=== PATIENT | female | born 1970 | race African-American/Black ===

== ENCOUNTER 2019-01-27 16:14 | Emergency (ER) | payer BC ==
[2019-01-27 17:46] LABS: ABSOLUTE BASOPHILS # (AUTO) 0.1 10^3/uL (0.0-0.2); ABSOLUTE NEUT (AUTO) 12.8 10^3/uL (1.7-8.2); BASOPHILS % (AUTO) 0.4 % (0-2); HEMATOCRIT 37.2 % (36.0-47.0); HEMOGLOBIN 12.5 g/dL (12.0-15.5); LYMPHOCYTES % (AUTO) 6.5 % (13-45); MEAN CORPUSCULAR HEMOGLOBIN 29.3 pg (27.0-33.4); MEAN CORPUSCULAR HGB CONC 33.7 g/dL (32.0-36.0); MEAN CORPUSCULAR VOLUME 87 fl (80-97); MONOCYTES % (AUTO) 6.8 % (3-13); PLATELET COUNT 297 10^3/uL (150-450); RED BLOOD COUNT 4.28 10^6/uL (3.72-5.28); RED CELL DISTRIBUTION WIDTH 13.5 % (11.5-14.0); SEGMENTED NEUTROPHILS % (AUTO) 86.3 % (42-78); TOTAL CELLS COUNTED % (AUTO) 100 %; WHITE BLOOD COUNT 14.8 10^3/uL (4.0-10.5)
[2019-01-27 18:08] LABS: ALBUMIN 4.1 g/dL (3.5-5.0); ALKALINE PHOSPHATASE 77 U/L (38-126); ANION GAP 12 (5-19); ASPARTATE AMINO TRANSFERASE 22 U/L (14-36); BILIRUBIN,DIRECT 0.2 mg/dL (0.0-0.4); BILIRUBIN,TOTAL 1.1 mg/dL (0.2-1.3); BLOOD UREA NITROGEN 9 mg/dL (7-20); CALCIUM 9.8 mg/dL (8.4-10.2); CARBON DIOXIDE 22 mmol/L (22-30); CHLORIDE 102 mmol/L (98-107); GLUCOSE 157 mg/dL (75-110); POTASSIUM 4.1 mmol/L (3.6-5.0); TOTAL PROTEIN 7.7 g/dL (6.3-8.2)
--- NOTE | 2019-01-27 18:09 | ER Document Report ---
ED Medical Screen (RME) - General Chief Complaint: Abdominal Pain Stated Complaint: ABDOMINAL PAIN/BACK PAIN Time Seen by Provider: 01/27/19 18:01 Primary Care Provider: TAPAN SMITH [Primary Care Provider] - Follow up as needed Notes: Patient is a 48-year-old female who presents the emergency department with chief complaint of abdominal pain. Patient reports she has had chills for 24 hours and a decreased appetite. Patient reports her last bowel movement was 1 week ago. Patient reports she feels full and has been burping. Patient reports she has been drinking and tolerating liquids without vomiting. Patient reports she is attempted to use Gas-X, Pepto-Bismol MiraLAX without much relief. Patient reports feeling a lower abdominal achiness. TRAVEL OUTSIDE OF THE [place] IN LAST 30 DAYS: No - Related Data Allergies/Adverse Reactions: No Known Allergies Allergy (Unverified 01/27/19 17:44) Past Medical History - Social History Frequency of alcohol use: Occasional Drug Abuse: None Physical Exam - Vital signs Vitals: Temp Pulse Resp BP Pulse Ox 98.2 F 116 H 16 114/69 100 01/27/19 16:17 01/27/19 16:17 01/27/19 16:17 01/27/19 16:17 01/27/19 16:17 - Abdominal Inspection: Normal Distension: No distension Bowel sounds: Normal Tenderness: Nontender Organomegaly: No organomegaly Course - Re-evaluation Re-evalutation: 01/27/19 18:09 I have greeted and performed a rapid initial assessment of this patient. A comprehensive ED assessment and evaluation of the patient, analysis of test results and completion of the medical decision making process will be conducted by additional ED providers. - Vital Signs Vital signs: Temp Pulse Resp BP Pulse Ox 98.2 F 116 H 16 114/69 100 01/27/19 16:17 01/27/19 16:17 01/27/19 16:17 01/27/19 16:17 01/27/19 16:17 - Laboratory Result Diagrams: 01/27/19 17:30 01/27/19 17:30 Doctor's Discharge - Discharge Referrals: TAPAN SMITH [Primary Care Provider] - Follow up as needed
[2019-01-27 18:12] LABS: APPEARANCE,URINE SLIGHTLY-CLOUDY; BILIRUBIN,URINE NEGATIVE (NEGATIVE); COLOR,URINE YELLOW; GLUCOSE, URINE NEGATIVE (NEGATIVE); KETONES,URINE 80 mg/dL (NEGATIVE); LEUKOCYTE ESTERASE,URINE MODERATE (NEGATIVE); NITRITE,URINE POSITIVE (NEGATIVE); PROTEIN,URINE 30 mg/dL (NEGATIVE); URINE SPECIFIC GRAVITY 1.013
--- NOTE | 2019-01-27 19:22 | RADIOLOGY REPORT (SQ) ---
EXAM DESCRIPTION: ACUTE ABDOMEN SERIES COMPLETED DATE/TIME: 01/27/2019 7:07 pm REASON FOR STUDY: lower abdominal pain, constipated COMPARISON: None. NUMBER OF VIEWS: Three views. TECHNIQUE: Frontal chest, supine abdomen and upright/decubitus abdomen radiographic images acquired. LIMITATIONS: None. FINDINGS: CHEST: Lungs clear of infiltrates. FREE AIR: None. No abnormal gas collections. BOWEL GAS PATTERN: Few air-fluid levels are seen within the right hemiabdomen. No evidence of obstru ction. CALCIFICATIONS: No suspicious calcifications. HARDWARE: None in the abdomen. SOFT TISSUES: No gross mass or suggestion of organomegaly. BONES: No acute fracture. No worrisome bone lesions. OTHER: No other significant finding. IMPRESSION: Nonspecific, nonobstructed bowel gas pattern demonstrating air-fluid levels within the r ight hemiabdomen suggesting developing enteritis. TECHNICAL DOCUMENTATION: JOB ID: [id number] [employer]- All Rights Reserved Reading location - IP/workstation name: [email or web address]
--- NOTE | 2019-01-27 20:56 | ER Document Report ---
ED General - General Chief Complaint: Abdominal Pain Stated Complaint: ABDOMINAL PAIN/BACK PAIN Time Seen by Provider: 01/27/19 18:01 Primary Care Provider: TAPAN SMITH [Primary Care Provider] - Follow up as needed TRAVEL OUTSIDE OF THE [place] IN LAST 30 DAYS: No - HPI Notes: Patient is a 48-year-old female who presents emergency department for evaluation of pressure in her lower abdomen. She states that the symptoms started yesterday after eating at a local restaurant. She states that it feels like a pressure. She believes her last bowel movement was about 5 or 6 days ago. She has no fevers or chills. No nausea or vomiting. At first she denies any urinary frequency or dysuria, but admits that she is gone to urinate at least 3 or 4 times since arriving in the emergency department. She states that she has pressure in her lower abdomen and pain that is started in her right flank. She does state that she tried some sort of laxative earlier today and has not had a ny significant relief in regards to her constipation. - Related Data Allergies/Adverse Reactions: No Known Allergies Allergy (Unverified 01/27/19 17:44) Home Medications: Tylenol, ibuprofen Past Medical History - General Information source: Patient - Social History Smoking Status: Never Smoker Frequency of alcohol use: Occasional Drug Abuse: None Family History: Reviewed & Not Pertinent Patient has suicidal ideation: No Patient has homicidal ideation: No Review of Systems - Review of Systems Constitutional: No symptoms reported EENT: No symptoms reported Cardiovascular: No symptoms reported Respiratory: No symptoms reported - Near Gastrointestinal: See HPI Genitourinary: See HPI Female Genitourinary: No symptoms reported Musculoskeletal: No symptoms reported Skin: No symptoms reported Neurological/Psychological: No symptoms reported - Months Physical Exam - Vital signs Vitals: Temp Pulse Resp BP Pulse Ox 98.2 F 116 H 16 114/69 100 01/27/19 16:17 01/27/19 16:17 01/27/19 16:17 01/27/19 16:17 01/27/19 16:17 - Notes Notes: Vital signs reviewed, please refer to chart. Head is normocephalic, atraumatic. Pupils equal round, reactive to light. Neck is supple without meningismus. Heart is regular rate and rhythm. Lungs are clear to auscultation bilaterally. Abdomen is soft, nontender, normoactive bowel sounds throughout. No CVA tenderness. Extremities without cyanosis, clubbing. Posterior calves are nontender. Peripheral pulses are equal. Skin is warm and dry. Patient is awake, alert, neurological exam is nonfocal. Course - Re-evaluation Re-evalutation: 01/27/19 20:52 Patient presents emergency department for evaluation. It does in fact seem that she has some urinary frequency, she is found to have a mild leukocytosis and a nitrate positive urine. She is started to develop flank pain, and the patient is not a good historian. I am inclined to give her a dose of IV antibiotics. She is dose here with ceftriaxone. I will send her home with a prescription for Keflex. She is told that if she develops fever, vomiting, increased pain, or any other new or concerning symptoms, she needs to return immediately to the emergency department for reevaluation. 01/27/19 20:53 Please note that I did tell the patient that she can continue the laxative preparation. The concern for possible enteritis is likely secondary to mild constipation. She has not had any nausea or vomiting. Again her findings are most consistent with UTI. - Vital Signs Vital signs: Temp Pulse Resp BP Pulse Ox 99.7 F 112 H 18 126/91 H 99 01/27/19 21:55 01/27/19 21:55 01/27/19 21:55 01/27/19 21:55 01/27/19 21:55 - Laboratory Result Diagrams: 01/27/19 17:30 01/27/19 17:30 Laboratory results interpreted by me: 01/27/19 01/27/19 01/27/19 17:30 17:30 17:30 WBC 14.8 H Lymph % (Auto) 6.5 L Absolute Neuts (auto) 12.8 H Seg Neutrophils % 86.3 H Sodium 135.8 L Glucose 157 H Urine Protein 30 H Urine Ketones 80 H Urine Blood LARGE H Urine Nitrite POSITIVE H Urine Urobilinogen 4.0 H Ur Leukocyte Esterase MODERATE H - Diagnostic Test Radiology reviewed: Reports reviewed Radiology results interpreted by me: 01/27/19 20:53 Acute Abdomen Series 01/27/19 18:07 IMPRESSION: Nonspecific, nonobstructed bowel gas pattern demonstrating air- fluid levels within the right hemiabdomen suggesting developing enteritis. Discharge - Discharge Clinical Impression: Urinary tract infection Qualifiers: Urinary tract infection type: site unspecified Hematuria presence: without hematuria Qualified Code(s): N39.0 - Urinary tract infection, site not specified Constipation Qualifiers: Constipation type: other constipation type Qualified Code(s): K59.09 - Other constipation Condition: Stable Disposition: HOME, SELF-CARE Instructions: Abdominal Pain ([facility]), Cephalexin ([facility]), Constipation ([facility]), Urinary Tract Infection ([facility]) Additional Instructions: Rest and stay well-hydrated. Take all the Keflex as directed, starting tomorrow. In regards to your constipation, you can start MiraLAX, or the generic equivalent, twice daily. Be sure to increase your fruit and vegetable intake, increase your water intake. If you develop fevers, vomiting, increased pain, or any other new or concerning symptoms, please return immediately to the emergency department for evaluation. Prescriptions: Cephalexin Monohydrate [Keflex 500 mg Capsule] 500 mg PO QID #20 capsule Referrals: LOCALMD,NO [Primary Care Provider] - Follow up as needed
[2019-01-27] MEDS ORDERED: ONDANSETRON HCL INJ/PF 4 MG/2 ML SDV IV ONE (21:18)
[2019-01-27] MEDS ORDERED: CEFTRIAXONE 1 GM/D5W RTU 1 GM/50 ML RTUPB IV ONE (21:30)
[2019-01-27 21:56] VITALS: BP 126/91
== END 2019-01-27 21:57 | disposition home or self-care (01) ==
LOC: ER 16:14
DX: K59.00 Constipation, unspecified (principal); N39.0 Urinary tract infection, site not specified; R35.0 Frequency of micturition; D72.829 Elevated white blood cell count, unspecified; R10.9 Unspecified abdominal pain; Z79.1 Long term (current) use of non-steroidal anti-inflammatories (NSAID); Z79.899 Other long term (current) drug therapy
CPT/HCPCS: 99284; 96375; 96365; 36415; 83690; 85025; 80053; 81001; 74022; J2405; J0696